=== PATIENT | female | born 1950 | race Caucasian/White ===

== ENCOUNTER 2018-03-23 10:16 | Inpatient (IN) ==
--- NOTE | 2018-03-23 10:18 | Emergency Department Note ---
Disposition Clinical Impression: Cellulitis of groin, left, Diverticulitis Disposition: Admitted As Inpatient Condition: Good Referrals: Batool Kwan MD [Primary Care Provider] - Forms: ED Satisfaction Letter Time of Disposition: 12:21 Recheck wound or abnormal lab - General Chief Complaint: ED Recheck/Abnormal Lab/Rx Stated Complaint: left groin wound recheck Time Seen by Provider: 03/23/18 10:18 Source: patient Mode of arrival: ambulatory Limitations: no limitations Nursing Notes Reviewed: Yes Vital Signs Reviewed: Yes - History of Present Illness HPI Narrative: 67-year-old female who presents today with groin abscess. She was seen a couple of days ago and had it opened and a large amount of purulent drainage came out of it. They did not pack it at that time. She is on Keflex and Bactrim. She states that she has not been able to evaluated because of her pannus but her is been taking care of it. She went to make sure it feels like its getting better. She states that she is still having some pain but it is improved. She has not had any systemic fevers. She is a diabetic. There is still a lot of drainage coming from it. It started as a what appears to be a folliculitis. Pt Subjective Complaint: wound re-check - Related Data Home Medications Medication Instructions Recorded Confirmed Lisinopril [Zestril] 40 mg PO DAILY 11/29/14 03/23/18 Lovastatin [Mevacor] 40 mg PO HS 11/29/14 03/23/18 Metoprolol [Lopressor] 100 mg PO BID 11/29/14 03/23/18 Apixaban [Eliquis] 5 mg PO BID 09/08/17 03/23/18 Allopurinol [Zyloprim] 300 mg PO DAILY 03/20/18 03/23/18 Ergocalciferol (VITAMIN D2) 50,000 unit PO QWEEK 03/20/18 03/23/18 [Vitamin D2] Furosemide [Lasix] 20 mg PO DAILY 03/20/18 03/23/18 Pioglitazone HCl [Actos] 1 tab PO DAILY 03/20/18 03/23/18 Potassium Chloride [Klor-Con 10] 10 meq PO DAILY 03/20/18 03/23/18 hydrOXYzine HCl [Hydroxyzine HCl] 25 mg PO TID PRN 03/20/18 03/23/18 Previous Rx's Medication Instructions Recorded TraMADol [Ultram] 50 mg PO Q6HR PRN #15 tablet 11/29/14 Clindamycin [Cleocin] 150 mg PO Q6HR #40 capsule 03/20/18 Sulfamethoxazole/Trimeth DS 1 each PO BID #20 tablet 03/20/18 [Bactrim DS] Allergies Allergy/AdvReac Type Severity Reaction Status Date / Time No Known Allergies Allergy Verified 09/08/17 20:32 Review of Systems: All other systems are negative except as noted/marked Chart generated with voice recognition software Nursing notes reviewed Old records reviewed Past Medical History - Past Medical History Attestation: Yes The following information was validated with the patient. Source: patient, old records reviewed, nursing notes reviewed Medical history: Reports: arthritis, atrial fibrillation, cancer, diabetes, hyperlipidemia, hypertension. Denies: CVA, DVT, pulmonary embolus Surgical history: Reports: cancer surgery, hysterectomy Psychiatric history: Reports: anxiety - Social History Smoking Status: Never smoker Smokeless Tobacco Status: No Alcohol use: Reports: none Drug use: Reports: none Physical Exam - General Limitations: no limitations General appearance: alert, in no apparent distress, obese - Head Head exam: atraumatic - Eye Eye exam: Present: normal appearance, PERRL, EOMI - ENT ENT exam: normal exam, normal oropharynx, mucous membranes moist, normal external ear exam - Neck Neck exam: Present: normal inspection, full ROM, trachea midline - Chest Chest inspection: Present: normal inspection, symmetric chest wall rise - Respiratory Respiratory exam: Present: normal lung sounds bilaterally - Cardiovascular Cardiovascular exam: Present: regular rate, normal rhythm, normal heart sounds - Abdominal Exam Abdominal exam: Present: soft, Non-Tender, normal bowel sounds - Female Radio Frequency Technician present during exam: Yes (RN carlos) External Exam: Present: erythema, tenderness, swelling, other (edematous, across pubic & groin region, purulent drainage from I&D spot on L. ) Course Vital Signs Temperature 97.8 F 03/23/18 10:20 Pulse Rate 100 03/23/18 10:20 Respiratory Rate 16 03/23/18 10:20 Blood Pressure 136/102 03/23/18 10:20 O2 Sat by Pulse Oximetry 97 03/23/18 10:20 Temperature 97.8 F 03/23/18 10:20 Pulse Rate 92 03/23/18 12:12 Respiratory Rate 17 03/23/18 12:12 Blood Pressure 132/76 03/23/18 12:12 O2 Sat by Pulse Oximetry 97 03/23/18 12:12 Oxygen Delivery Oxygen Delivery Room Air Recheck wound or abnormal lab - MDM Narrative Medical decision making narrative: I spoke with Dr Sellers at 12:20 and he accepted the patient. We dsicussed the clindamycin, he will evaluate her and then change up antibiotics if he feels its indicated. 67-year-old female presents today with left groin cellulitis. I was concerned given that she is still having drainage that there could be something more nefarious going on therefore a CAT scan some lab work today. Her white counts normal lactic normal CT does not show any evidence of any free air just showing a left-sided cellulitis of the groin. She also does have an incidental diverticulitis. I discussed this with her she is having some abdominal cramping but no diarrhea at this time. Started on clindamycin IV to cover the groin region and some IV fluids after her contrasted studies given that her kidney function was not perfect before the CT. Patient is resting comfortably she has voided 4 times and she has been here and having no trouble with urine output. She is agreeable to staying in the hospital as I do think this needs to be closely monitored. It is hard to say whether it was getting any better or not since are not physician a saw 2 days ago. I do think that she would benefit from the stairs spoke with Dr. Sellers R hospitalist who agreed to evaluate the patient. We discussed adding or changing additional antibiotics at this time he wants to see her first and then he will make antibiotic adjustments. Patient is stable at transfer to the floor - Medical Records Medical records reviewed: Yes I reviewed the patient's medical records. - Lab Data Lab results reviewed: Yes I reviewed the patient's lab results. Result diagrams: 03/23/18 10:57 03/23/18 10:57 Lab Results 03/23/18 03/23/18 03/23/18 Range/Units 10:50 10:57 10:57 WBC 8.3 (4.3-11.1) K/mcL RBC 4.95 (3.82-4.97) M/mcL Hgb 14.8 (11.5-15.4) g/dL Hct 45.4 H (35.3-44.9) % MCV 91.7 (83.0-100.0) fL MCH 29.9 (28.0-33.3) pg MCHC 32.6 (31.6-35.5) g/dL RDW 14.6 H (11.5-14.5) % Plt Count 240 (140-400) K/mcL MPV 10.2 (9.4-12.4) fL Immature Gran % 0.6 (0-4) % Seg Neutrophils % 72.3 % Lymphocytes % 16.2 % Monocytes % 7.0 % Eosinophils % 3.3 % Basophils % 0.6 % Neutrophils # 6.0 (1.6-8.9) K/mcL Lymphocytes # 1.3 (0.6-4.6) K/mcL Monocytes # 0.6 (0.0-1.3) K/mcL Eosinophils # 0.3 (0.0-0.6) K/mcL Basophils # 0.1 (0.0-0.2) K/mcL Sodium 135 L (136-145) mEq/L Potassium 3.9 (3.5-5.1) mEq/L Chloride 98 (98-107) mEq/L Carbon Dioxide 28 (23-29) mEq/L BUN 21 (8-23) mg/dL Creatinine 1.74 H (0.60-1.20) mg/dL Est GFR ( Amer) 36 L (> 60) Est GFR (Non-Af Amer) 29 L (> 60) BUN/Creatinine Ratio 12 (6-26) Glucose 160 H (70-105) mg/dL Calculated Osmolality 286 (280-300) Lactic Acid (0.5-2.2) mmol/L Calcium 9.3 (8.6-10.3) mg/dL Magnesium 1.7 (1.6-2.6) mg/dL Urine Color Yellow (Yellow) Urine Clarity Slightly Cloudy A (Clear) Urine pH 6.0 (5.0-8.0) pH Units Ur Specific [place] >= 1.030 H (1.010-1.025) Urine Protein Negative (Neg-Trace) mg/dL Urine Glucose (UA) Normal (Normal) mg/dL Urine Ketones Negative (Negative) mg/dL Urine Blood Negative (Negative) Urine Nitrite Negative (Negative) Urine Bilirubin Small H (Negative) Urine Urobilinogen Normal (Normal) mg/dL Ur Leukocyte Esterase Negative (Negative) Urine Microscopic WBC 0-3 (0-3) per hpf Ur Squamous Epith Cells Few (None-Few) per lpf Urine Bacteria Few (None-Few) per hpf Ur Culture Indicated? NO (NO) 03/23/18 Range/Units 10:57 WBC (4.3-11.1) K/mcL RBC (3.82-4.97) M/mcL Hgb (11.5-15.4) g/dL Hct (35.3-44.9) % MCV (83.0-100.0) fL MCH (28.0-33.3) pg MCHC (31.6-35.5) g/dL RDW (11.5-14.5) % Plt Count (140-400) K/mcL MPV (9.4-12.4) fL Immature Gran % (0-4) % Seg Neutrophils % % Lymphocytes % % Monocytes % % Eosinophils % % Basophils % % Neutrophils # (1.6-8.9) K/mcL Lymphocytes # (0.6-4.6) K/mcL Monocytes # (0.0-1.3) K/mcL Eosinophils # (0.0-0.6) K/mcL Basophils # (0.0-0.2) K/mcL Sodium (136-145) mEq/L Potassium (3.5-5.1) mEq/L Chloride (98-107) mEq/L Carbon Dioxide (23-29) mEq/L BUN (8-23) mg/dL Creatinine (0.60-1.20) mg/dL Est GFR ( Amer) (> 60) Est GFR (Non-Af Amer) (> 60) BUN/Creatinine Ratio (6-26) Glucose (70-105) mg/dL Calculated Osmolality (280-300) Lactic Acid 2.2 (0.5-2.2) mmol/L Calcium (8.6-10.3) mg/dL Magnesium (1.6-2.6) mg/dL Urine Color (Yellow) Urine Clarity (Clear) Urine pH (5.0-8.0) pH Units Ur Specific [place] (1.010-1.025) Urine Protein (Neg-Trace) mg/dL Urine Glucose (UA) (Normal) mg/dL Urine Ketones (Negative) mg/dL Urine Blood (Negative) Urine Nitrite (Negative) Urine Bilirubin (Negative) Urine Urobilinogen (Normal) mg/dL Ur Leukocyte Esterase (Negative) Urine Microscopic WBC (0-3) per hpf Ur Squamous Epith Cells (None-Few) per lpf Urine Bacteria (None-Few) per hpf Ur Culture Indicated? (NO) - Radiology Data Radiology results reviewed: Yes I reviewed the patient's radiology results. CT/CT abd pelvis w iv no oral IMPRESSION: 1. Cellulitis in the left inguinal soft tissues. No abscess. 2. Mild acute sigmoid diverticulitis. No abscess. Follow-up recommended to confirm resolution. D/ / Samy Garay MD / Samy Garay MD Interpreting Provider: Samy Garay MD
[2018-03-23] MEDS ORDERED: Isovue-370 500 ML BOTTLE IVP ONE ×2 (10:40→12:36)
[2018-03-23] MEDS ORDERED: ISOVUE-370 100 ML INFUS..BTL IVP ONE ×3 (10:50→12:36)
[2018-03-23 11:00] LABS: Bilirubin,Urine Small (Negative); Blood,Urine Negative (Negative); Clarity,Urine Slightly Cloudy (Clear); Color,Urine Yellow (Yellow); Glucose,Urine (UA) Normal (Normal); Ketones,Urine Negative (Negative); Leukocyte Esterase,Urine Negative (Negative); Nitrite,Urine Negative (Negative); Protein,Urine Negative (Neg-Trace); Specific Gravity,Urine >= 1.030 (1.010-1.025); Urobilinogen,Urine Normal (Normal)
[2018-03-23 11:07] LABS: Basophils # 0.1 K/mcL (0.0-0.2); Basophils % 0.6 %; Eosinophils # 0.3 K/mcL (0.0-0.6); Eosinophils % 3.3 %; Hematocrit 45.4 % (35.3-44.9); Hemoglobin 14.8 g/dL (11.5-15.4); Immature Granulocytes % 0.6 % (0-4); Lymphocytes # 1.3 K/mcL (0.6-4.6); Lymphocytes % 16.2 %; Mean Corpuscular HGB Conc 32.6 g/dL (31.6-35.5); Mean Corpuscular Hemoglobin 29.9 pg (28.0-33.3); Mean Corpuscular Volume 91.7 fL (83.0-100.0); Mean Platelet Volume 10.2 fL (9.4-12.4); Monocytes # 0.6 K/mcL (0.0-1.3); Platelet Count 240 K/mcL (140-400); Red Blood Count 4.95 M/mcL (3.82-4.97); Red Cell Distribution Width 14.6 % (11.5-14.5); Segmented Neutrophils % 72.3 %
[2018-03-23 11:16] LABS: Bacteria,Urine Few per hpf (None-Few); Squamous Epithelial Cell,Urine Few per lpf (None-Few); WBC,Urine 0-3 per hpf (0-3)
[2018-03-23 11:44] LABS: Calcium 9.3 mg/dL (8.6-10.3); Magnesium 1.7 mg/dL (1.6-2.6); Potassium 3.9 mEq/L (3.5-5.1)
[2018-03-23] MEDS ORDERED: 0.9 % Sodium Chloride 1,000 ML IVC ONE ×2 (11:53→12:01)
[2018-03-23] MEDS ORDERED: Clindamycin 900 MG/50 ML 900 MG/50 ML IV.SOLN IVPB ONE (12:00)
[2018-03-23] MEDS ORDERED: 0.9 % Sodium Chloride 1,000 ML IVC SCH (12:36)
[2018-03-23] MEDS ORDERED: hydrOXYzine pamoate 25 MG CAPSULE PO PRN (12:36)
[2018-03-23] MEDS ORDERED: Naloxone 0.4 MG/ML INJ IVP PRN (12:36)
[2018-03-23] MEDS ORDERED: Ketorolac 30 MG/ML VIAL IVP PRN (12:36)
[2018-03-23] MEDS ORDERED: *HR* HYDROcodone/Acet 5/325 mg TABLET PO PRN (12:36)
[2018-03-23] MEDS ORDERED: Ondansetron 4 MG/2 ML VIAL IVP PRN (12:36)
[2018-03-23] MEDS ORDERED: Acetaminophen 325 MG TABLET PO PRN (12:36)
[2018-03-23] MEDS ORDERED: Mag Hydrox/Al Hydrox/Simeth 30 ML UDC PO PRN (12:36)
--- NOTE | 2018-03-23 17:20 | Internal Med History&Physical ---
Date of Encounter: 03/23/18 Time of Encounter: 16:45 Assessment and Plan (1) Cellulitis of groin, left Current visit: Yes Status: Acute Wound culture will be done and she will be given IV clindamycin and Zosyn with lactobacillus. Labs will be monitored. (2) Gout Current visit: Yes Status: Chronic Uric acid level was 8.4 on 03/10/2018. Continue allopurinol. IV fluids will be ordered for hydration. Qualifiers: Gout site: unspecified site Gout etiology: unspecified cause Chronicity: unspecified Qualified Code(s): M10.9 - Gout, unspecified (3) CKD (chronic kidney disease) stage 3, GFR 30-59 ml/min Current visit: Yes Status: Chronic Monitor renal indices. (4) Atrial fibrillation Current visit: Yes Status: Acute Continue metoprolol and Eliquis. Qualifiers: Atrial fibrillation type: unspecified Qualified Code(s): I48.91 - Unspecified atrial fibrillation (5) Hypertension Current visit: Yes Status: Chronic Continue metoprolol. Qualifiers: Hypertension type: essential hypertension Qualified Code(s): I10 - Essential (primary) hypertension Internal Medicine - H&P: HPI Chief complaint: Groin infection Admitted From: Emergency Dept Plans for Post Hospital Care: Home History of present illness: Ms. Gutierrez is a 67 year old female who noted soreness in her left groin/suprapubic area the evening of March 16. She did not seek medical attention until March 20 when it spontaneously drained bloody purulent material. She came to emergency room where incision and drainage procedure with iodoform packing was done. She was started on clindamycin and Bactrim. She was instructed to follow with her PCP today but did not feel improved so came back to emergency room. She was evaluated and was felt to have significant soft tissue inflammation without abscess. She was admitted to [facility] floor for ongoing care needs. The CT scan showed findings consistent with mild acute sigmoid diverticulitis but no abscess. She denies any change in her bowel habits or intra-abdominal discomfort. She has not had fevers or chills. Past Med Surg Social Fam HX - Past Medical History Medical history: arthritis, atrial fibrillation, cancer, diabetes, hyperlipid emia, hypertension Additional medical history: rajani WEEKS Psychiatric history: anxiety - Past Surgical History Surgical History: cancer surgery, hysterectomy Additional surgical history: heart x 2. uterine ca. afib ablasion. varicose veins. right breast lump. d&c x 2. tubal - Social History Smoking Status: Never smoker Smokeless Tobacco Status: No Alcohol use: none Drug use: none Internal Medicine - H&P: Meds Lisinopril [Zestril] 40 mg PO DAILY 11/29/14 [History] Lovastatin [Mevacor] 40 mg PO HS 11/29/14 [History] Metoprolol [Lopressor] 100 mg PO BID 11/29/14 [History] TraMADol [Ultram] 50 mg PO Q6HR PRN #15 tablet 11/29/14 [Rx] Apixaban [Eliquis] 5 mg PO BID 09/08/17 [History] Allopurinol [Zyloprim] 300 mg PO DAILY 03/20/18 [History] Clindamycin [Cleocin] 150 mg PO Q6HR #40 capsule 03/20/18 [Rx] Ergocalciferol (VITAMIN D2) [Vitamin D2] 50,000 unit PO QWEEK 03/20/18 [History] Furosemide [Lasix] 20 mg PO DAILY 03/20/18 [History] Pioglitazone HCl [Actos] 1 tab PO DAILY 03/20/18 [History] Potassium Chloride [Klor-Con 10] 10 meq PO DAILY 03/20/18 [History] Sulfamethoxazole/Trimeth DS [Bactrim DS] 1 each PO BID #20 tablet 03/20/18 [Rx] hydrOXYzine HCl [Hydroxyzine HCl] 25 mg PO TID PRN 03/20/18 [History] Allergy/AdvReac Type Severity Reaction Status Date / Time No Known Allergies Allergy Verified 09/08/17 20:32 All Systems PM: A 10-system review of systems was performed and is negative for pertinent findings except as documented above in the HPI. Review of systems: Gen.: She states her weight has been stable for several months Cardiovascular: She has history of hypertension. She denies MO or heart failure. She has history of atrial fibrillation and has undergone a Maze procedure as well as an ablation procedure. She has had 4 cardioversions with the most recent one April 2016. She states she has maintained normal sinus rhythm since then. She thinks she has had DVT in the past. She has had vein st ripping for varicose veins. She denies pulmonary embolus. Respiratory: She is a lifelong nonsmoker and denies chronic lung disease GI: She has had cholecystectomy. She denies disorders of her liver or exocrine pancreas : She has chronic kidney disease and follows with a [facility] director network development. She denies other kidney or bladder disorders. Neurologic: Mental status: She denies large distribution strokes or seizures. Endocrine: She was diagnosed with DM 2 approximately 2007. She has hyperl ipidemia but denies thyroid disease. Hematology/oncology: She had uterine cancer 2010 followed by curative hysterectomy. She denies other internal malignancies, blood disorders, or anemia Psychiatric: She has anxiety but denies depression or other mental health issues. Musko skeletal: She has gout. She denies significant DJD or other bone joint or muscle disorders. - Constitutional Vitals: Temp Pulse Resp BP Pulse Ox 97.9 F 91 18 132/84 98 03/23/18 15:11 03/23/18 15:11 03/23/18 15:11 03/23/18 15:11 03/23/18 15:14 Exam: Gen.: She is a well-developed morbidly obese female sitting in a chair at [facility] who appears in no acute distress at rest HEENT: Head is atraumatic and normocephalic. Eyes: EOMI. There is no scleral icterus. Mouth: Mucosa is moist. Neck: Supple and nontender. There is no thyromegaly or adenopathy noted. Heart: Regular without murmurs or gallops Lungs: No wheezes or crackles are heard. Abdomen: Soft and nontender. No masses or guarding are noted. Extremities: She has chronic venous stasis pigmentation changes of her lower legs. She has 2+ edema of the dorsum of the feet bilaterally. Dorsalis pedis and posttibial pulses are not palpable. Neurologic: Mental status: She is talkative and seems to be a reliable historian. Cranial nerves: Smile is symmetric. Forehead wrinkles bilaterally. Tongue protrudes midline. EOMI. Motor: There is no pronator drift. Cereb ellar: Finger to nose is intact bilaterally. Skin: She has induration and erythema of the left suprapubic area. There is a small opening from incision and drainage seen without packing in place. No significant purulent material can be expressed from the wound. The area surrounding the incision site is painful to palpation. Internal Med - H&P Results - Labs CBC & Chem 7: 03/23/18 10:57 03/23/18 10:57 Labs: Short CBC 03/23/18 Range/Units 10:57 WBC 8.3 (4.3-11.1) K/mcL Hgb 14.8 (11.5-15.4) g/dL Hct 45.4 H (35.3-44.9) % Plt Count 240 (140-400) K/mcL Neutrophils # 6.0 (1.6-8.9) K/mcL BMP 03/23/18 10:57 Sodium 135 L Potassium 3.9 Chloride 98 Carbon Dioxide 28 BUN 21 Creatinine 1.74 H Glucose 160 H Calcium 9.3 Urine 03/23/18 Range/Units 10:50 Urine Color Yellow (Yellow) Urine Clarity Slightly Cloudy A (Clear) Urine pH 6.0 (5.0-8.0) pH Units Ur Specific [place] >= 1.030 H (1.010-1.025) Urine Protein Negative (Neg-Trace) mg/dL Urine Glucose (UA) Normal (Normal) mg/dL - Impressions ITS Impressions Abdomen/Pelvis CT 03/23/18 10:42 IMPRESSION: 1. Cellulitis in the left inguinal soft tissues. No abscess. 2. Mild acute sigmoid diverticulitis. No abscess. Follow-up recommended to confirm resolution. D/ / 03/23/2018 12:23:46 Samy Garay MD / [email or web address] Interpreting Provider: Samy Garay MD
[2018-03-23] MEDS: 0.45 % Sodium Chloride w/KCl 20 MEQ/1,000 ML MLS IVC SCH (17:49)
[2018-03-23] MEDS: Acetaminophen 325 MG TABLET PO SCH ×2 (17:50→23:30)
[2018-03-23] MEDS: Clindamycin 600 MG/50 ML 600 MG/50 ML IV.SOLN IVPB SCH ×3 (17:50→21:28)
[2018-03-23] MEDS: Piperacillin/Tazobactam 3.375 GM in 0.9 % Sodium Chloride Mini Bag 100 ML IVPB SCH (18:01)
[2018-03-23] MEDS: traMADol 50 MG TABLET PO PRN (21:27)
[2018-03-23] MEDS: Apixaban 5 MG TABLET PO SCH (21:28)
[2018-03-23] MEDS: Lactobacillus 1 EACH CAP.SPRINK PO SCH (21:28)
[2018-03-24] MEDS: 0.45 % Sodium Chloride w/KCl 20 MEQ/1,000 ML MLS IVC SCH ×2 (04:31→14:50)
[2018-03-24] MEDS: Clindamycin 600 MG/50 ML 600 MG/50 ML IV.SOLN IVPB SCH ×2 (04:32→15:00)
[2018-03-24] MEDS: Acetaminophen 325 MG TABLET PO SCH ×3 (05:17→16:52)
[2018-03-24 06:03] LABS: Basophils % 0.5 %; Eosinophils # 0.2 K/mcL (0.0-0.6); Eosinophils % 2.6 %; Hematocrit 40.7 % (35.3-44.9); Hemoglobin 13.2 g/dL (11.5-15.4); Immature Granulocytes % 0.8 % (0-4); Lymphocytes # 1.6 K/mcL (0.6-4.6); Lymphocytes % 21.3 %; Mean Corpuscular HGB Conc 32.4 g/dL (31.6-35.5); Mean Corpuscular Volume 92.5 fL (83.0-100.0); Mean Platelet Volume 10.3 fL (9.4-12.4); Monocytes # 0.6 K/mcL (0.0-1.3); Monocytes % 7.7 %; Neutrophils # 5.1 K/mcL (1.6-8.9); Platelet Count 223 K/mcL (140-400); Red Cell Distribution Width 14.7 % (11.5-14.5); Segmented Neutrophils % 67.1 %
[2018-03-24] MEDS: Piperacillin/Tazobactam 3.375 GM in 0.9 % Sodium Chloride Mini Bag 100 ML IVPB SCH ×2 (06:13→18:08)
[2018-03-24 06:24] LABS: Calcium 8.9 mg/dL (8.6-10.3); Potassium 4.3 mEq/L (3.5-5.1)
[2018-03-24] MEDS: Lactobacillus 1 EACH CAP.SPRINK PO SCH ×2 (08:41→20:50)
[2018-03-24] MEDS: Apixaban 5 MG TABLET PO SCH ×2 (08:41→20:49)
[2018-03-24] MEDS: traMADol 50 MG TABLET PO PRN ×2 (08:42→16:50)
[2018-03-24] MEDS: Cholecalciferol (D-3) 1,000 UNIT TABLET PO SCH (08:42)
[2018-03-24] MEDS: *HR* Pioglitazone 15 MG TABLET PO SCH (08:43)
[2018-03-24] MEDS ORDERED: Lisinopril 20 MG TABLET PO SCH (09:00)
[2018-03-24] MEDS ORDERED: Furosemide 20 MG TABLET PO SCH (09:00)
--- NOTE | 2018-03-24 10:23 | Internal Med Progress Note ---
Date of Encounter: 03/24/18 Time of Encounter: 10:15 - Assessment and plan (1) Cellulitis of groin, left Current Visit: Yes Status: Acute Assessment and plan: March 24. Continue IV clindamycin and Zosyn with lactobacillus. (2) Gout Current Visit: Yes Status: Chronic Assessment and plan: March 24. Continue allopurinol. Qualifiers: Gout site: unspecified site Gout etiology: unspecified cause Chronicity: unspecified Qualified Code(s): M10.9 - Gout, unspecified (3) CKD (chronic kidney disease) stage 3, GFR 30-59 ml/min Current Visit: Yes Status: Chronic Assessment and plan: March 24. Monitor renal indices. (4) Atrial fibrillation Current Visit: Yes Status: Acute Assessment and plan: March 24. Continue metoprolol and Eliquis. Qualifiers: Atrial fibrillation type: unspecified Qualified Code(s): I48.91 - Unspecified atrial fibrillation (5) Hypertension Current Visit: Yes Status: Chronic Assessment and plan: March 24. Continue metoprolol. Qualifiers: Hypertension type: essential hypertension Qualified Code(s): I10 - Essential (primary) hypertension - Subjective Interval history: March 24. She has no new complaints and feels better. - Constitutional Vitals: Temp Pulse Resp BP Pulse Ox 97.8 F 101 16 126/73 97 03/24/18 07:38 03/24/18 07:38 03/24/18 07:38 03/24/18 07:38 03/24/18 07:38 Exam: She is resting comfortably in bed and appears in no acute distress. Her affect is cheerful. The erythema and induration in the left suprapubic area appears to have slightly decreased. No purulent material could be expressed from the incision site. Wound c/s report is pending. I reviewed her medications and lab results. Internal Medicine: Result - Labs CBC & Chem 7: 03/24/18 05:28 03/24/18 05:28 Labs: Short CBC 03/23/18 03/24/18 Range/Units 10:57 05:28 WBC 8.3 7.6 (4.3-11.1) K/mcL Hgb 14.8 13.2 D (11.5-15.4) g/dL Hct 45.4 H 40.7 (35.3-44.9) % Plt Count 240 223 (140-400) K/mcL Neutrophils # 6.0 5.1 (1.6-8.9) K/mcL BMP 03/23/18 03/24/18 10:57 05:28 Sodium 135 L 133 L Potassium 3.9 4.3 Chloride 98 99 Carbon Dioxide 28 28 BUN 21 21 Creatinine 1.74 H 1.57 H Glucose 160 H 151 H Calcium 9.3 8.9 Urine 03/23/18 Range/Units 10:50 Urine Color Yellow (Yellow) Urine Clarity Slightly Cloudy A (Clear) Urine pH 6.0 (5.0-8.0) pH Units Ur Specific [place] >= 1.030 H (1.010-1.025) Urine Protein Negative (Neg-Trace) mg/dL Urine Glucose (UA) Normal (Normal) mg/dL - Impressions Impressions Abdomen/Pelvis CT 03/23/18 10:42 IMPRESSION: 1. Cellulitis in the left inguinal soft tissues. No abscess. 2. Mild acute sigmoid diverticulitis. No abscess. Follow-up recommended to confirm resolution. D/ / 03/23/2018 12:23:46 Samy Garay MD / bcarter Interpreting Provider: Samy Garay MD Consult Discharge Plan - Plan Referrals: Batool Kwan MD [Primary Care Provider] - 1 week
[2018-03-25] MEDS: Clindamycin 600 MG/50 ML 600 MG/50 ML IV.SOLN IVPB SCH (00:18)
[2018-03-25] MEDS: Acetaminophen 325 MG TABLET PO SCH ×2 (00:25→05:12)
[2018-03-25 05:40] LABS: Calcium 9.5 mg/dL (8.6-10.3); Potassium 4.4 mEq/L (3.5-5.1)
[2018-03-25] MEDS: Piperacillin/Tazobactam 3.375 GM in 0.9 % Sodium Chloride Mini Bag 100 ML IVPB SCH (06:19)
[2018-03-25] MEDS ORDERED: Clindamycin 600 MG/50 ML 600 MG/50 ML IV.SOLN IVPB SCH (07:00)
[2018-03-25 07:35] VITALS: BP 130/80
[2018-03-25] MEDS: 0.45 % Sodium Chloride w/KCl 20 MEQ/1,000 ML MLS IVC SCH ×2 (07:50→08:07)
[2018-03-25] MEDS: Cholecalciferol (D-3) 1,000 UNIT TABLET PO SCH (08:05)
[2018-03-25] MEDS: Apixaban 5 MG TABLET PO SCH (08:05)
[2018-03-25] MEDS: Lactobacillus 1 EACH CAP.SPRINK PO SCH (08:05)
[2018-03-25] MEDS: *HR* Pioglitazone 15 MG TABLET PO SCH (08:06)
[2018-03-25] MEDS ORDERED: traMADol 50 MG TABLET PO PRN (08:12)
--- NOTE | 2018-03-25 09:56 | Discharge Summary ---
Orders not resulted at time of discharge: Pending orders 03/23/18 10:57 Culture,Blood [BC] Stat 03/23/18 18:15 Culture,Wound [RM] Routine Date of Encounter: 03/25/18 Time of Encounter: 09:48 - Discharge Diagnosis (1) Cellulitis of groin, left Priority: Primary Status: Acute (2) Gout Priority: Secondary Status: Chronic Qualifiers: Gout site: unspecified site Gout etiology: unspecified cause Chronicity: unspecified Qualified Code(s): M10.9 - Gout, unspecified (3) CKD (chronic kidney disease) stage 3, GFR 30-59 ml/min Priority: Secondary Status: Chronic (4) Atrial fibrillation Priority: Secondary Status: Chronic Qualifiers: Atrial fibrillation type: unspecified Qualified Code(s): I48.91 - Unspecified atrial fibrillation (5) Hypertension Priority: Secondary Status: Chronic Qualifiers: Hypertension type: essential hypertension Qualified Code(s): I10 - Essential (primary) hypertension Hospital course: Ms. Gutierrez is a 67 year old female who noted soreness in her left groin/suprapubic area the evening of March 16. She did not seek medical attention until March 20 when it spontaneously drained bloody purulent material. She came to emergency room where incision and drainage procedure with iodoform packing was done. She was started on clindamycin and Bactrim. She wa s instructed to follow with her PCP today but did not feel improved so came back to emergency room. She was evaluated and was felt to have significant soft tissue inflammation without abscess. She was admitted to [facility] floor for ongoing care needs. Initial orders were written by the emergency room physician. I saw her on March 23 and performed a history and physical. Wound culture was done and she was started on IV clindamycin and Zosyn with lactobacillus. Preliminary culture report on day of discharge showed growth of gram-negative jennifer presumptively identified as Proteus. She will be discharged on Augmentin and Levaquin with lactobacillus. Her PCP can follow up on the final culture report to ensure adequate coverage. On March 25 she felt improved and stated there was no residual pain in her left groin/suprapubic area. She wished to be discharged home which I felt was reasonable. She will follow with her PCP Dr. Kwan within 1 week. - Time Spent with Patient Total time spent providing and/or coordinating discharge services: - Discharge Medications Prescriptions: Amoxicillin/Clavulanate [Augmentin] 875 mg PO BIDWM #10 tablet Lactobacillus [Culturelle] 1 each PO BID #10 cap.sprink levoFLOXacin [Levaquin] 750 mg PO DAILY #5 tablet Home Medications: Lisinopril [Zestril] 40 mg PO DAILY 11/29/14 [History] Lovastatin [Mevacor] 40 mg PO HS 11/29/14 [History] Metoprolol [Lopressor] 100 mg PO BID 11/29/14 [History] TraMADol [Ultram] 50 mg PO Q6HR PRN #15 tablet 11/29/14 [Rx] Apixaban [Eliquis] 5 mg PO BID 09/08/17 [History] Allopurinol [Zyloprim] 300 mg PO DAILY 03/20/18 [History] Ergocalciferol (VITAMIN D2) [Vitamin D2] 50,000 unit PO QWEEK 03/20/18 [History] Furosemide [Lasix] 20 mg PO DAILY 03/20/18 [History] Pioglitazone HCl [Actos] 1 tab PO DAILY 03/20/18 [History] Potassium Chloride [Klor-Con 10] 10 meq PO DAILY 03/20/18 [History] hydrOXYzine HCl [Hydroxyzine HCl] 25 mg PO TID PRN 03/20/18 [History] Amoxicillin/Clavulanate [Augmentin] 875 mg PO BIDWM #10 tablet 03/25/18 [Rx] Lactobacillus [Culturelle] 1 each PO BID #10 cap.sprink 03/25/18 [Rx] levoFLOXacin [Levaquin] 750 mg PO DAILY #5 tablet 03/25/18 [Rx] Allergies/Adverse Reactions: Allergy/AdvReac Type Severity Reaction Status Date / Time No Known Allergies Allergy Verified 09/08/17 20:32 Date of admission: 03/24/18 16:36 Primary care physician: Batool Kwan - Constitutional Vitals: Temp Pulse Resp BP Pulse Ox 98.3 F 93 16 130/80 97 03/25/18 07:00 03/25/18 07:00 03/25/18 07:00 03/25/18 07:00 03/25/18 07:00 - Patient Status Disposition: Home, Self-Care Condition: Good - Discharge Instructions Follow Up With: Batool Kwan MD [Primary Care Provider] - 1 week - Diet and Activity Activity: resume usual activities as tolerated Diet: advance to your usual diet
--- NOTE | 2018-03-25 10:34 | Physician Discharge Referral ---
Home Health/Hosp Referral Info Transfer to: Home Health Attending Provider: Marlo Provider in Charge Post Discharge: PCP Nitin) - Diagnosis (1) Cellulitis of groin, left Priority: Primary Status: Acute (2) Gout Priority: Secondary Status: Chronic (3) CKD (chronic kidney disease) stage 3, GFR 30-59 ml/min Priority: Secondary Status: Chronic (4) Atrial fibrillation Priority: Secondary Status: Chronic (5) Hypertension Priority: Secondary Status: Chronic - Respiratory Orders Smoking Cessation: Smoking cessation has been advised. For more information, call the [place] Tobacco Quit Line at 0-371-XTVB-NOW. - Dressing/Wound Care Type of Dressing/Treatments w/Frequency: Pack left suprapubic wound daily with iodoform until adequately healed. - Diet/Nutrition Diet/Nutrition Orders: No Concentrated Sweets - Activity Activity Orders: Ambulate - Services Needed Following services are medically necessary services: Nursing, Home Health Aide, Physical Therapy, Occupational Therapy - Transfer Medications Prescriptions: Amoxicillin/Clavulanate [Augmentin] 875 mg PO BIDWM #10 tablet Lactobacillus [Culturelle] 1 each PO BID #10 cap.sprink levoFLOXacin [Levaquin] 750 mg PO DAILY #5 tablet Home Medications: Lisinopril [Zestril] 40 mg PO DAILY 11/29/14 [History] Lovastatin [Mevacor] 40 mg PO HS 11/29/14 [History] Metoprolol [Lopressor] 100 mg PO BID 11/29/14 [History] TraMADol [Ultram] 50 mg PO Q6HR PRN #15 tablet 11/29/14 [Rx] Apixaban [Eliquis] 5 mg PO BID 09/08/17 [History] Allopurinol [Zyloprim] 300 mg PO DAILY 03/20/18 [History] Ergocalciferol (VITAMIN D2) [Vitamin D2] 50,000 unit PO QWEEK 03/20/18 [History] Furosemide [Lasix] 20 mg PO DAILY 03/20/18 [History] Pioglitazone HCl [Actos] 1 tab PO DAILY 03/20/18 [History] Potassium Chloride [Klor-Con 10] 10 meq PO DAILY 03/20/18 [History] hydrOXYzine HCl [Hydroxyzine HCl] 25 mg PO TID PRN 03/20/18 [History] Amoxicillin/Clavulanate [Augmentin] 875 mg PO BIDWM #10 tablet 03/25/18 [Rx] Lactobacillus [Culturelle] 1 each PO BID #10 cap.sprink 03/25/18 [Rx] levoFLOXacin [Levaquin] 750 mg PO DAILY #5 tablet 03/25/18 [Rx] Allergies/Adverse Reactions: Allergy/AdvReac Type Severity Reaction Status Date / Time No Known Allergies Allergy Verified 09/08/17 20:32 Certification: Further, I certify that my clinical findings support that this patient is homebound (i.e. absences from home require considerable and taxing effort and are for medical reasons or [facility] or infrequently or short duration when for other reasons) because: Homebound Reason: Leaving home requires considerable and taxing effort due to condition (Morbid obesity, left suprapubic wound.) Attestation: My signature below is to certify that this patient is under my care and that I, or nurse practitioner, or a physician's retail administrative assistant working with me, has a [id number] encounter with this patient.
== END 2018-03-25 11:25 | disposition home or self-care (01) | DRG 603 ==
LOC: INPPIK 10:16 → EMEROOPIK 10:16 → INPPIK 14:09
PROVIDERS: ADMIT Internal Medicine; ATTEND Internal Medicine

== ENCOUNTER 2019-01-14 15:22 | Observation (INO) ==
[2019-01-14 16:10] LABS: Basophils % 0.6 %; Eosinophils # 0.2 K/mcL (0.0-0.6); Eosinophils % 2.9 %; Hemoglobin 11.1 g/dL (11.5-15.4); Immature Granulocytes % 0.2 % (0-4); Lymphocytes # 1.3 K/mcL (0.6-4.6); Lymphocytes % 25.7 %; Mean Corpuscular HGB Conc 31.7 g/dL (31.6-35.5); Mean Corpuscular Hemoglobin 30.1 pg (28.0-33.3); Mean Corpuscular Volume 94.9 fL (83.0-100.0); Mean Platelet Volume 9.8 fL (9.4-12.4); Monocytes # 0.3 K/mcL (0.0-1.3); Monocytes % 6.6 %; Neutrophils # 3.3 K/mcL (1.6-8.9); Platelet Count 160 K/mcL (140-400); Red Blood Count 3.69 M/mcL (3.82-4.97); Red Cell Distribution Width 16.7 % (11.5-14.5); White Blood Count 5.2 K/mcL (4.3-11.1)
[2019-01-14 16:28] LABS: Calcium 9.4 mg/dL (8.6-10.3); Potassium 5.2 mEq/L (3.5-5.1)
[2019-01-14] MEDS ORDERED: 0.9 % Sodium Chloride 500 ML IVC ONE ×2 (16:47→17:20)
[2019-01-14] MEDS ORDERED: 0.9 % Sodium Chloride 1,000 ML IVC SCH (17:00)
[2019-01-14] MEDS ORDERED: *HR* Dextrose 50 % in Water (Vial) 50 ML VIAL IVP PRN (17:20)
[2019-01-14] MEDS ORDERED: MOM Conc 10 ML UD.LIQ PO PRN (17:20)
[2019-01-14] MEDS ORDERED: Naloxone 0.4 MG/ML INJ IVP PRN (17:20)
[2019-01-14] MEDS ORDERED: Dextrose Gel 15 GM/37.5 ML TUBE PO PRN ×2 (17:20)
[2019-01-14] MEDS ORDERED: Mag Hydrox/Al Hydrox/Simeth 30 ML UDC PO PRN (17:20)
[2019-01-14] MEDS ORDERED: D5% in Water 1,000 ML IVC PRN (17:20)
[2019-01-14] MEDS ORDERED: Ondansetron ODT 4 MG TAB.RAPDIS SL PRN (17:20)
[2019-01-14] MEDS: traMADol 50 MG TABLET PO PRN (20:04)
[2019-01-14] MEDS: *HR* Dabigatran 75 MG CAPSULE PO SCH (20:04)
[2019-01-14] MEDS: 0.9 % Sodium Chloride 1,000 ML IVC SCH (23:31)
[2019-01-14] MEDS ORDERED: 0.9 % Sodium Chloride 250 ML IVC ONE (23:59)
[2019-01-15] MEDS ORDERED: 0.9 % Sodium Chloride 250 ML IVC ONE (00:33)
[2019-01-15] MEDS: 0.9 % Sodium Chloride 1,000 ML IVC SCH ×3 (02:00→20:37)
[2019-01-15] MEDS ORDERED: 0.9 % Sodium Chloride 500 ML IVC ONE (06:05)
[2019-01-15] MEDS: Acetaminophen 325 MG TABLET PO PRN ×2 (06:29→12:45)
[2019-01-15 06:49] LABS: Calcium 9.1 mg/dL (8.6-10.3); Potassium 4.7 mEq/L (3.5-5.1)
[2019-01-15] MEDS: Insulin LISPRO 300 UNITS/3 ML VIAL SQ SCH ×3 (07:40→16:07)
[2019-01-15] MEDS: *HR* Dabigatran 75 MG CAPSULE PO SCH ×2 (07:56→20:37)
[2019-01-15] MEDS ORDERED: *HR* Pioglitazone 15 MG TABLET PO SCH (09:00)
[2019-01-16] MEDS: Acetaminophen 325 MG TABLET PO PRN (00:10)
[2019-01-16] MEDS: traMADol 50 MG TABLET PO PRN (04:09)
[2019-01-16] MEDS: 0.9 % Sodium Chloride 1,000 ML IVC SCH ×2 (04:09→09:47)
[2019-01-16 05:44] LABS: Basophils % 0.6 %; Eosinophils # 0.1 K/mcL (0.0-0.6); Eosinophils % 2.7 %; Hematocrit 30.5 % (35.3-44.9); Hemoglobin 9.7 g/dL (11.5-15.4); Immature Granulocytes % 0.2 % (0-4); Lymphocytes # 1.5 K/mcL (0.6-4.6); Lymphocytes % 27.7 %; Mean Corpuscular HGB Conc 31.8 g/dL (31.6-35.5); Mean Corpuscular Hemoglobin 30.1 pg (28.0-33.3); Mean Corpuscular Volume 94.7 fL (83.0-100.0); Monocytes # 0.4 K/mcL (0.0-1.3); Monocytes % 7.1 %; Neutrophils # 3.2 K/mcL (1.6-8.9); Platelet Count 149 K/mcL (140-400); Red Blood Count 3.22 M/mcL (3.82-4.97); Red Cell Distribution Width 16.8 % (11.5-14.5); Segmented Neutrophils % 61.7 %; White Blood Count 5.2 K/mcL (4.3-11.1)
[2019-01-16 06:12] LABS: Albumin 2.7 g/dL (3.5-5.7); Albumin/Globulin Ratio 0.9 (1.1-2.2); Bilirubin,Total 0.6 mg/dL (0.3-1.0); Calcium 8.8 mg/dL (8.6-10.3); Globulin 2.9 g/dL (2.4-3.5); Potassium 4.5 mEq/L (3.5-5.1); Total Protein 5.6 g/dL (6.4-8.9); Uric Acid 4.5 mg/dL (2.3-7.6)
[2019-01-16] MEDS ORDERED: Metoprolol XL (24 HR) Succ 25 MG TAB.ER.24H PO SCH (09:00)
[2019-01-16] MEDS: *HR* Dabigatran 75 MG CAPSULE PO SCH (09:44)
[2019-01-16] MEDS: Insulin LISPRO 300 UNITS/3 ML VIAL SQ SCH ×2 (09:45→12:13)
[2019-01-16 10:22] LABS: Folate 10.7 ng/mL (3.0-16.0)
[2019-01-16 10:40] LABS: Estimated Average Glucose 146 mg/dl
[2019-01-16 15:21] VITALS: BP 106/65
== END 2019-01-16 16:36 | disposition home or self-care (01) ==
LOC: INPPIK 15:22 → EMEROOPIK 15:22 → INPPIK 17:25
PROVIDERS: ADMIT Internal Medicine; ATTEND Internal Medicine

== ENCOUNTER 2019-03-20 18:27 | Inpatient (IN) ==
[2019-03-20] MEDS: Furosemide 40 MG TABLET PO SCH (23:13)
[2019-03-20] MEDS: Metoprolol XL (24 HR) Succ 25 MG TAB.ER.24H PO SCH (23:13)
[2019-03-21 08:34] LABS: Basophils % 0.7 %; Eosinophils # 0.2 K/mcL (0.0-0.6); Eosinophils % 2.5 %; Hematocrit 25.3 % (35.3-44.9); Immature Granulocytes % 0.5 % (0-4); Lymphocytes % 17.3 %; Mean Corpuscular HGB Conc 31.6 g/dL (31.6-35.5); Mean Corpuscular Hemoglobin 31.5 pg (28.0-33.3); Mean Corpuscular Volume 99.6 fL (83.0-100.0); Monocytes # 0.6 K/mcL (0.0-1.3); Monocytes % 10.1 %; Neutrophils # 4.1 K/mcL (1.6-8.9); Platelet Count 163 K/mcL (140-400); Red Blood Count 2.54 M/mcL (3.82-4.97); Segmented Neutrophils % 68.9 %
[2019-03-21] MEDS: Furosemide 40 MG TABLET PO SCH ×2 (08:42→20:49)
[2019-03-21] MEDS: Metoprolol XL (24 HR) Succ 25 MG TAB.ER.24H PO SCH (08:42)
[2019-03-21 08:44] LABS: INR 1.8; Prothrombin Time 19.9 Seconds (9.4-12.1)
[2019-03-21 08:46] LABS: Activated Partial Thrombo Time 39.4 Seconds (26.0-36.0)
[2019-03-21 09:47] LABS: Calcium 8.9 mg/dL (8.6-10.3); Potassium 3.7 mEq/L (3.5-5.1)
[2019-03-21] MEDS: *HR* Rivaroxaban 15 MG TABLET PO SCH (15:52)
[2019-03-21] MEDS: GlipiZIDE 5 MG TABLET PO SCH (15:52)
[2019-03-21] MEDS ORDERED: *HR* Rivaroxaban 10 MG TABLET PO SCH (17:00)
[2019-03-21] MEDS: Nystatin POWDER 30 GM BOTTLE TP SCH ×2 (18:47→20:50)
[2019-03-22] MEDS: GlipiZIDE 5 MG TABLET PO SCH ×2 (09:44→16:24)
[2019-03-22] MEDS: Nystatin POWDER 30 GM BOTTLE TP SCH ×3 (09:45→19:50)
[2019-03-22] MEDS: Furosemide 40 MG TABLET PO SCH ×2 (10:58→16:31)
[2019-03-22] MEDS: *HR* Rivaroxaban 15 MG TABLET PO SCH (17:00)
[2019-03-23] MEDS: GlipiZIDE 5 MG TABLET PO SCH ×2 (08:29→16:29)
[2019-03-23] MEDS: Furosemide 40 MG TABLET PO SCH ×3 (08:31→16:29)
[2019-03-23] MEDS: Nystatin POWDER 30 GM BOTTLE TP SCH ×3 (08:32→19:58)
[2019-03-23 10:40] LABS: Calcium 8.8 mg/dL (8.6-10.3); Potassium 3.7 mEq/L (3.5-5.1)
[2019-03-23] MEDS: *HR* Rivaroxaban 15 MG TABLET PO SCH (16:29)
[2019-03-24] MEDS: GlipiZIDE 5 MG TABLET PO SCH (08:01)
[2019-03-24] MEDS: Nystatin POWDER 30 GM BOTTLE TP SCH ×3 (08:06→21:02)
[2019-03-24] MEDS ORDERED: Furosemide 40 MG TABLET PO SCH (09:00)
[2019-03-24] MEDS: Furosemide 40 MG TABLET PO SCH (09:57)
[2019-03-24] MEDS: *HR* Rivaroxaban 15 MG TABLET PO SCH (16:53)
[2019-03-24] MEDS: Melatonin 3 MG TABLET PO SCH (21:02)
[2019-03-25] MEDS: Furosemide 40 MG TABLET PO SCH ×2 (01:39→08:08)
[2019-03-25] MEDS: Nystatin POWDER 30 GM BOTTLE TP SCH ×3 (08:00→21:16)
[2019-03-25] MEDS: *HR* Rivaroxaban 15 MG TABLET PO SCH (15:50)
[2019-03-25] MEDS: Melatonin 3 MG TABLET PO SCH (22:05)
[2019-03-26 06:46] LABS: Hemoglobin 7.5 g/dL (11.5-15.4); Mean Corpuscular HGB Conc 31.3 g/dL (31.6-35.5); Mean Corpuscular Hemoglobin 31.4 pg (28.0-33.3); Mean Corpuscular Volume 100.4 fL (83.0-100.0); Mean Platelet Volume 9.5 fL (9.4-12.4); Platelet Count 206 K/mcL (140-400); Red Blood Count 2.39 M/mcL (3.82-4.97); Red Cell Distribution Width 18.4 % (11.5-14.5); White Blood Count 4.8 K/mcL (4.3-11.1)
[2019-03-26 07:08] LABS: Calcium 8.8 mg/dL (8.6-10.3); Potassium 3.3 mEq/L (3.5-5.1)
[2019-03-26] MEDS: Nystatin POWDER 30 GM BOTTLE TP SCH ×3 (09:46→22:08)
[2019-03-26] MEDS: Furosemide 40 MG TABLET PO SCH ×2 (09:47→16:08)
[2019-03-26 10:06] LABS: Estimated Average Glucose 114 mg/dl
[2019-03-26 13:39] LABS: % Iron Saturation 10 % (15-50); Iron 37 mcg/dL (50-170); Transferrin 278 mg/dL (203-362)
[2019-03-26] MEDS: *HR* Rivaroxaban 10 MG TABLET PO SCH (16:08)
[2019-03-26 16:14] LABS: Hematocrit 25.6 % (35.3-44.9); Mean Corpuscular HGB Conc 31.3 g/dL (31.6-35.5); Mean Corpuscular Hemoglobin 31.7 pg (28.0-33.3); Mean Corpuscular Volume 101.6 fL (83.0-100.0); Mean Platelet Volume 9.3 fL (9.4-12.4); Platelet Count 213 K/mcL (140-400); Red Blood Count 2.52 M/mcL (3.82-4.97); Red Cell Distribution Width 18.6 % (11.5-14.5); White Blood Count 4.8 K/mcL (4.3-11.1)
[2019-03-26 21:22] LABS: Folate 11.7 ng/mL (3.0-16.0)
[2019-03-26] MEDS: Melatonin 3 MG TABLET PO SCH (22:07)
[2019-03-27] MEDS: Furosemide 40 MG TABLET PO SCH ×2 (08:46→16:53)
[2019-03-27] MEDS: Iron Polysaccharide Complex 150 MG CAPSULE PO SCH (08:46)
[2019-03-27] MEDS: Nystatin POWDER 30 GM BOTTLE TP SCH ×3 (08:48→21:30)
[2019-03-27] MEDS: *HR* Rivaroxaban 10 MG TABLET PO SCH (16:53)
[2019-03-27] MEDS ORDERED: MOM Conc 10 ML UD.LIQ PO PRN (18:46)
[2019-03-27] MEDS: Melatonin 3 MG TABLET PO SCH ×2 (21:27→21:30)
[2019-03-28] MEDS: Iron Polysaccharide Complex 150 MG CAPSULE PO SCH (09:51)
[2019-03-28] MEDS: Furosemide 40 MG TABLET PO SCH ×2 (09:51→16:09)
[2019-03-28] MEDS: Nystatin POWDER 30 GM BOTTLE TP SCH ×3 (09:53→20:15)
[2019-03-28] MEDS: *HR* Rivaroxaban 10 MG TABLET PO SCH (16:09)
[2019-03-28] MEDS: Melatonin 3 MG TABLET PO SCH (20:15)
[2019-03-29] MEDS: Furosemide 40 MG TABLET PO SCH ×2 (08:00→15:53)
[2019-03-29] MEDS: Iron Polysaccharide Complex 150 MG CAPSULE PO SCH (08:00)
[2019-03-29 08:21] LABS: Hematocrit 24.4 % (35.3-44.9); Hemoglobin 7.7 g/dL (11.5-15.4); Mean Corpuscular HGB Conc 31.6 g/dL (31.6-35.5); Mean Corpuscular Hemoglobin 31.4 pg (28.0-33.3); Mean Corpuscular Volume 99.6 fL (83.0-100.0); Mean Platelet Volume 9.4 fL (9.4-12.4); Platelet Count 249 K/mcL (140-400); Red Blood Count 2.45 M/mcL (3.82-4.97); Red Cell Distribution Width 17.8 % (11.5-14.5); White Blood Count 4.7 K/mcL (4.3-11.1)
[2019-03-29] MEDS: Nystatin POWDER 30 GM BOTTLE TP SCH ×3 (09:30→19:54)
[2019-03-29] MEDS: *HR* Rivaroxaban 10 MG TABLET PO SCH (15:53)
[2019-03-29] MEDS: Melatonin 3 MG TABLET PO SCH (19:54)
[2019-03-30 06:56] VITALS: BP 119/71
[2019-03-30] MEDS: Furosemide 40 MG TABLET PO SCH (09:08)
[2019-03-30] MEDS: Nystatin POWDER 30 GM BOTTLE TP SCH (09:09)
[2019-03-30 09:38] LABS: Hemoglobin 8.2 g/dL (11.5-15.4); Mean Corpuscular HGB Conc 30.4 g/dL (31.6-35.5); Mean Corpuscular Hemoglobin 30.7 pg (28.0-33.3); Mean Corpuscular Volume 101.1 fL (83.0-100.0); Mean Platelet Volume 9.1 fL (9.4-12.4); Platelet Count 262 K/mcL (140-400); Red Blood Count 2.67 M/mcL (3.82-4.97); Red Cell Distribution Width 17.8 % (11.5-14.5); White Blood Count 5.1 K/mcL (4.3-11.1)
== END 2019-03-30 12:05 | disposition home health service (06) | DRG 291 ==
LOC: INPPIK 22:20
PROVIDERS: ADMIT Family Medicine; ATTEND Family Medicine

== ENCOUNTER 2020-11-14 03:45 | Inpatient (IN) ==
[2020-11-14] MEDS ORDERED: 0.9 % Sodium Chloride 1,000 ML IVC SCH ×3 (04:15→08:46)
[2020-11-14 05:10] LABS: Basophils # 0.1 K/mcL (0.0-0.2); Basophils % 0.3 %; Eosinophils # 0.1 K/mcL (0.0-0.6); Eosinophils % 0.4 %; Hematocrit 44.3 % (35.3-44.9); Immature Granulocytes % 1.1 % (0-4); Lymphocytes # 0.9 K/mcL (0.6-4.6); Lymphocytes % 5.4 %; Mean Corpuscular HGB Conc 31.6 g/dL (31.6-35.5); Mean Corpuscular Hemoglobin 28.7 pg (28.0-33.3); Mean Corpuscular Volume 90.8 fL (83.0-100.0); Mean Platelet Volume 10.2 fL (9.4-12.4); Monocytes # 0.7 K/mcL (0.0-1.3); Monocytes % 4.2 %; Neutrophils # 14.4 K/mcL (1.6-8.9); Platelet Count 185 K/mcL (140-400); Red Blood Count 4.88 M/mcL (3.82-4.97); Red Cell Distribution Width 14.8 % (11.5-14.5); Segmented Neutrophils % 88.6 %; White Blood Count 16.3 K/mcL (4.3-11.1)
[2020-11-14 05:18] LABS: INR 1.9; Prothrombin Time 21.7 Seconds (9.4-12.1)
[2020-11-14 05:30] LABS: Troponin I < 0.03 ng/mL (< 0.04)
[2020-11-14 05:32] LABS: Albumin 3.6 g/dL (3.5-5.7); Bilirubin,Total 1.6 mg/dL (0.3-1.0); Calcium 9.1 mg/dL (8.6-10.3); Globulin 3.7 g/dL (2.4-3.5); Lipase 30 Units/L (11-82); Potassium 4.1 mEq/L (3.5-5.1); Total Protein 7.3 g/dL (6.4-8.9)
[2020-11-14] MEDS ORDERED: Azithromycin 500 MG in D5% in Water 250 ML IVPB ONE (05:47)
[2020-11-14] MEDS ORDERED: Furosemide 40 MG in 0.9 % Sodium Chloride 50 ML IV ONE (05:49)
[2020-11-14 07:41] LABS: Bilirubin,Urine Negative (Negative); Blood,Urine Moderate (Negative); Clarity,Urine Cloudy (Clear); Color,Urine Yellow (Yellow); Glucose,Urine (UA) Normal (Normal); Ketones,Urine Negative (Negative); Leukocyte Esterase,Urine Negative (Negative); Nitrite,Urine Negative (Negative); Protein,Urine 100 mg/dL (Neg-Trace); Urobilinogen,Urine Normal (Normal)
[2020-11-14 07:53] LABS: Bacteria,Urine Moderate per hpf (None-Few); Squamous Epithelial Cell,Urine Moderate per hpf (None-Few); WBC,Urine 0-3 per hpf (0-3)
[2020-11-14] MEDS ORDERED: Naloxone 0.4 MG/ML INJ IVP PRN ×2 (08:46→09:20)
[2020-11-14] MEDS ORDERED: GLIPIZIDE 10 MG PO SCH (09:00)
[2020-11-14] MEDS ORDERED: Furosemide 40 MG in 0.9 % Sodium Chloride 50 ML IV SCH (09:00)
[2020-11-14] MEDS ORDERED: *HR* Dextrose 50 % in Water (Vial) 50 ML VIAL IVP PRN ×2 (09:19→16:36)
[2020-11-14] MEDS ORDERED: D5% in Water 1,000 ML IVC PRN ×2 (09:19→16:36)
[2020-11-14] MEDS ORDERED: Dextrose Gel 15 GM/37.5 ML TUBE PO PRN ×4 (09:19→16:36)
[2020-11-14] MEDS ORDERED: Ondansetron 4 MG/2 ML VIAL IVP PRN (10:13)
[2020-11-14] MEDS ORDERED: DilTIAZem 50 MG in 0.9 % Sodium Chloride 40 ML IVC SCH (10:30)
[2020-11-14] MEDS: allopurinoL 300 MG TABLET PO SCH (10:37)
[2020-11-14] MEDS: Acetaminophen 325 MG TABLET PO PRN (10:56)
[2020-11-14] MEDS ORDERED: Insulin LISPRO 300 UNITS/3 ML VIAL SUBQ SCH (12:00)
[2020-11-14] MEDS: DilTIAZem 50 MG in 0.9 % Sodium Chloride 40 ML IVC SCH (13:51)
[2020-11-14] MEDS: Insulin LISPRO 300 UNITS/3 ML VIAL SUBQ SCH ×2 (16:46→21:56)
[2020-11-14] MEDS ORDERED: Fluconazole 150 MG TABLET PO ONE (17:00)
[2020-11-14] MEDS: 0.9 % Sodium Chloride 1,000 ML IVC SCH (17:06)
[2020-11-14] MEDS ORDERED: Isovue-370 500 ML BOTTLE IVP ONE (17:07)
[2020-11-14] MEDS: Furosemide 40 MG/4 ML VIAL IVP SCH (20:54)
[2020-11-15] MEDS: Acetaminophen 325 MG TABLET PO PRN (02:10)
[2020-11-15] MEDS: 0.9 % Sodium Chloride 1,000 ML IVC SCH (04:48)
[2020-11-15 07:42] LABS: Basophils % 0.2 %; Eosinophils % 0.2 %; Hematocrit 39.7 % (35.3-44.9); Hemoglobin 12.4 g/dL (11.5-15.4); Immature Granulocytes % 0.3 % (0-4); Lymphocytes # 1.1 K/mcL (0.6-4.6); Lymphocytes % 10.4 %; Mean Corpuscular HGB Conc 31.2 g/dL (31.6-35.5); Mean Corpuscular Hemoglobin 28.1 pg (28.0-33.3); Mean Platelet Volume 10.1 fL (9.4-12.4); Monocytes # 0.5 K/mcL (0.0-1.3); Monocytes % 4.5 %; Platelet Count 158 K/mcL (140-400); Red Blood Count 4.41 M/mcL (3.82-4.97); Red Cell Distribution Width 15.4 % (11.5-14.5); Segmented Neutrophils % 84.4 %; White Blood Count 10.7 K/mcL (4.3-11.1)
[2020-11-15 07:56] LABS: Albumin 2.9 g/dL (3.5-5.7); Albumin/Globulin Ratio 0.9 (1.1-2.2); Bilirubin,Total 0.9 mg/dL (0.3-1.0); Calcium 8.3 mg/dL (8.6-10.3); Globulin 3.1 g/dL (2.4-3.5); Potassium 3.6 mEq/L (3.5-5.1)
[2020-11-15] MEDS: DilTIAZem 50 MG in 0.9 % Sodium Chloride 40 ML IVC SCH ×2 (08:26→11:03)
[2020-11-15] MEDS: Insulin LISPRO 300 UNITS/3 ML VIAL SUBQ SCH ×4 (10:09→21:57)
[2020-11-15] MEDS: *HR* Rivaroxaban 10 MG TABLET PO SCH (10:20)
[2020-11-15] MEDS: allopurinoL 300 MG TABLET PO SCH (10:20)
[2020-11-15] MEDS: Furosemide 40 MG/4 ML VIAL IVP SCH (11:11)
[2020-11-15] MEDS: cefTRIAXone 2,000 MG in Water for inj. (sterile) 20 ML IVP SCH (11:11)
[2020-11-15] MEDS: Azithromycin 500 MG in 0.9 % Sodium Chloride 250 ML IVPB SCH (11:12)
[2020-11-15] MEDS ORDERED: Azithromycin 500 MG VIAL ONE (11:17)
[2020-11-16] MEDS: Acetaminophen 325 MG TABLET PO PRN (01:32)
[2020-11-16 06:11] LABS: Basophils % 0.5 %; Eosinophils # 0.1 K/mcL (0.0-0.6); Eosinophils % 1.3 %; Hematocrit 40.1 % (35.3-44.9); Hemoglobin 12.7 g/dL (11.5-15.4); Immature Granulocytes % 0.5 % (0-4); Lymphocytes # 1.2 K/mcL (0.6-4.6); Lymphocytes % 13.5 %; Mean Corpuscular HGB Conc 31.7 g/dL (31.6-35.5); Mean Corpuscular Hemoglobin 27.9 pg (28.0-33.3); Mean Corpuscular Volume 88.1 fL (83.0-100.0); Mean Platelet Volume 10.3 fL (9.4-12.4); Monocytes # 0.6 K/mcL (0.0-1.3); Neutrophils # 6.8 K/mcL (1.6-8.9); Platelet Count 166 K/mcL (140-400); Red Blood Count 4.55 M/mcL (3.82-4.97); Red Cell Distribution Width 15.1 % (11.5-14.5); Segmented Neutrophils % 77.2 %; White Blood Count 8.7 K/mcL (4.3-11.1)
[2020-11-16 06:35] LABS: Calcium 8.3 mg/dL (8.6-10.3); Magnesium 1.7 mg/dL (1.6-2.6); Potassium 3.3 mEq/L (3.5-5.1)
[2020-11-16] MEDS ORDERED: Furosemide 40 MG/4 ML VIAL IVP SCH (09:00)
[2020-11-16] MEDS: cefTRIAXone 2,000 MG in Water for inj. (sterile) 20 ML IVP SCH (10:25)
[2020-11-16] MEDS: Insulin LISPRO 300 UNITS/3 ML VIAL SUBQ SCH ×3 (10:26→17:20)
[2020-11-16] MEDS: Azithromycin 500 MG in 0.9 % Sodium Chloride 250 ML IVPB SCH (10:26)
[2020-11-16] MEDS: allopurinoL 300 MG TABLET PO SCH (10:27)
[2020-11-16] MEDS: *HR* Rivaroxaban 10 MG TABLET PO SCH (10:27)
[2020-11-16] MEDS ORDERED: Potassium Chloride Elixir 20 MEQ/15 ML UDC PO ONE (10:28)
[2020-11-16 11:33] VITALS: BP 142/89
[2020-11-16] MEDS: 0.9 % Sodium Chloride 1,000 ML IVC SCH (12:13)
[2020-11-16 17:34] VITALS: PULSE 93; RESP 18; TEMP 98.1; O2SAT 95
[2020-11-16] MEDS ORDERED: FLU Vac QV 21-22 (6Month+)/PF 0.5 ML SYRINGE IM ONE (18:27)
== END 2020-11-16 21:00 | disposition home or self-care (01) | DRG 291 ==
LOC: INPPIK 03:45 → EMEROOPIK 03:45 → INPPIK 08:44
PROVIDERS: ADMIT Student in an Organized Health Care Education/Training Program; ATTEND Student in an Organized Health Care Education/Training Program